=== PATIENT | female | born 1970 | race Caucasian/White ===

== ENCOUNTER 2022-06-09 03:02 | Emergency (ER) | payer OTHER, SELFPAY ==
--- NOTE | ~2022-06-09 | CT_ITS ---
EXAMINATION: CT abdomen pelvis w con DATE: 06/09/2022 04:14 INDICATION: Abdominal pain. Vomiting. TECHNIQUE: Computed tomography (CT) of the abdomen and pelvis was performed with 100 mL Omnipaque 350 intravenous contrast. Automated exposure control and iterative reconstruction technique were employe d. The dose-length product was 705.91 mGy-cm. COMPARISON: None. FINDINGS: The visualized portions of the lung bases demonstrate mild atelectasis. There is a 7 mm nod ule in left lower lobe. There is mild atelectasis in lingula and right middle lobe. No pleural effusi on. The heart size is normal. No pericardial effusion. There is diffuse hepatic steatosis. There are changes of cholecystectomy. The common duct is mildly dilated and measures 13 mm, likely not clinical ly significant given the normal liver function tests. Calcifications in the spleen are consistent wit h old granulomatous disease. The pancreas, adrenal glands, and kidneys are normal. There are some flu id-filled loops of small bowel with mild mesenteric edema, but the bowel loops are not dilated. There is mild mesenteric edema The appendix is normal. There is physiologic fluid in the pelvis. There is mild thoracolumbar spondylosis. IMPRESSION: 1. Mild mesenteric edema involving some small bowel loops, consistent with enteritis. 2. Diffuse hepatic steatosis. Reviewed, dictated and finalized at location A. IMPRESSION: 1. Mild mesenteric edema involving some small bowel loops, consistent with ente ritis. 2. Diffuse hepatic steatosis.
[2022-06-09 02:56] VITALS: BP 180/91; PULSE 67; RESP 16; TEMP 36.4; O2SAT 100
[2022-06-09] MEDS: MORPHINE SULFATE (*CRX) 4 MG/ML INJ IV PUSH (03:18)
[2022-06-09] MEDS: SODIUM CHLORIDE 0.9% IV 1,000 ML 999 ML IV CONT (03:19)
[2022-06-09] MEDS: ONDANSETRON INJ 4 MG/2 ML VIAL IV PUSH (03:19)
--- NOTE | 2022-06-09 03:37 | ED.GENADULT ---
HPI - General Adult General Chief complaint: Abdominal Pain Stated complaint: ABD PAIN, N/V Time Seen by Provider: 06/09/22 03:02 History of Present Illness HPI narrative: Patient 51-year-old female who presents the emergency department with chief complaint of abdominal pain. Patient reports this evening she started feeling not so well and then started having nausea. The patient states she vomited approximately 5 times and then started having abdominal pain patient states the pain was more of a sharp type sensation reports the pain is not worsened by anything nor is it improved by anything. Patient states she also started having loose bowel movements when this started as well. The patient reports she had COVID approximately 2 weeks ago reports that the symptoms or not improved by anything. Related Data Allergies Allergy/AdvReac Type Severity Reaction Status Date / Time ibuprofen Allergy Severe SOB, HIVES Verified 06/09/22 04:22 naloxegol [From Movantik] AdvReac Intermediate Opioid Verified 06/09/22 04:22 withdrawal Review of Systems Review of Systems: A 10 system review of systems was completed on the patient and is negative except for what is stated in the HPI. Nursing and ancillary documentation was reviewed. 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 HEAD: Normocephalic, atraumatic. EYES: PERRLA and EOMI. ENT: Nares clear, no rhinorrhea or epistaxis. Mucous membranes moist. NECK: Supple. CHEST: Clear to auscultation. No respiratory distress. HEART: Regular rate and rhythm. No murmur heard. Normal peripheral pulses. ABDOMEN: Soft, diffuse mild tenderness to palpation, nondistended, normal active bowel sounds. EXTREMITIES: Normal range of motion. No edema. SKIN: Warm, dry, no rash. NEURO: No focal deficits. Alert and oriented x3. PSYCH: Normal mood and affect. Course Vital Signs Vital signs: Vital Signs Temperature 36.4 C 06/09/22 02:56 Pulse Rate 67 06/09/22 02:56 Respiratory Rate 16 06/09/22 02:56 Blood Pressure 180/91 H 06/09/22 02:56 Pulse Oximetry 100 06/09/22 02:56 Oxygen Delivery Room Air 06/09/22 02:56 Temperature 36.4 C 06/09/22 02:56 Pulse Rate 59 L 06/09/22 05:02 Respiratory Rate 22 H 06/09/22 05:17 Blood Pressure 164/76 H 06/09/22 05:17 Pulse Oximetry 99 06/09/22 05:17 Oxygen Delivery Room Air 06/09/22 02:56 Medical Decision Making Vital Signs Vital Signs: Vital Signs Temperature 36.4 C 06/09/22 02:56 Pulse Rate 67 06/09/22 02:56 Respiratory Rate 16 06/09/22 02:56 Blood Pressure 180/91 H 06/09/22 02:56 Pulse Oximetry 100 06/09/22 02:56 Oxygen Delivery Room Air 06/09/22 02:56 Temperature 36.4 C 06/09/22 02:56 Pulse Rate 59 L 06/09/22 05:02 Respiratory Rate 22 H 06/09/22 05:17 Blood Pressure 164/76 H 06/09/22 05:17 Pulse Oximetry 99 06/09/22 05:17 Oxygen Delivery Room Air 06/09/22 02:56 Lab Data Result diagrams: 06/09/22 03:35 06/09/22 03:35 Labs: Lab Results
[2022-06-09 03:42] LABS: Basophils Percent Auto 0.3 % (0.2-1.2); Eosinophils Absolute Auto 0.1 K/mm3 (0-0.3); Eosinophils Percent Auto 0.8 % (0-4.4); Hematocrit 39.2 % (37.0-47.0); Hemoglobin 12.9 g/dL (12.0-15.0); Immature Granulocyte Absolute 0.04 K/mm3 (0.00-0.031); Immature Granulocyte Percent A 0.3 % (0-0.5); Lymphocytes Absolute Auto 1.89 K/mm3 (0.9-3.2); Lymphocytes Percent Auto 15.1 % (18.3-44.2); Mean Corpuscular HGB Conc 32.9 g/dl (32-36); Mean Corpuscular Hemoglobin 29.5 pg (26-34); Mean Corpuscular Volume 89.7 fl (80-100); Monocytes Absolute Auto 0.8 K/mm3 (0.1-0.6); Monocytes Percent Auto 6.5 % (2.6-8.5); Neutrophils Absolute Auto 9.7 K/mm3 (1.3-6.7); Platelet Count Result 276 k/mm3 (150-375); Red Blood Count 4.37 M/mm3 (4.2-5.4); Red Cell Distribution Width 13.2 % (11.5-14.5); White Blood Count 12.6 K/mm3 (4.5-10.0)
[2022-06-09 03:54] LABS: Lipase 99 U/L (23-300)
[2022-06-09 03:55] LABS: Lactic Acid Reflex 1.7 mmol/L (0.7-2.0)
[2022-06-09 03:56] LABS: Alanine Aminotransferase 29 U/L (6-35); Albumin Level 4.2 g/dL (3.5-5.1); Alkaline Phosphatase 68 U/L (38-126); Anion Gap 9 mmol/L (8-16); Aspartate Amino Transferase 36 U/L (14-36); Bilirubin,Total 0.4 mg/dL (0.2-1.3); Blood Urea Nitrogen 18 mg/dL (7-17); Carbon Dioxide 28 mmol/L (22-30); Chloride 98 mmol/L (98-107); Estimated CRCL calculation 63 ml/min; Estimated Glomerular Filt Rate > 60; Glucose 144 mg/dL (65-110); Potassium 4.2 mmol/L (3.4-5.0); Sodium 135 mmol/L (137-145)
--- NOTE | 2022-06-09 04:20 | PC.NURSE ---
Pt returns from CT. Explained need for NPO. States pain has improved somewhat. Amb to bathroom for ccus.
[2022-06-09 04:30] VITALS: BP 183/76; PULSE 62; RESP 20; O2SAT 95
[2022-06-09 04:32] VITALS: PULSE 60; RESP 18; O2SAT 99
--- NOTE | 2022-06-09 04:34 | PC.NURSE ---
Pt states abdominal pain has gone but still has extreme nausea and I just don't feel right .
[2022-06-09 04:37] LABS: Appearance Urine Clear (Clear); Bilirubin Urine Negative (Negative); Blood Urine 2+ (Negative); Color Urine Yellow (Yellow); Glucose Urine UA Negative (Negative); Ketones Urine Negative (Negative); Leukocyte Esterase Ur Trace LEU/UL (Negative); Nitrate Urine Negative (Negative); Protein Urine 1+ mg/dL (Negative); Specific Grav Ur 1.015 (1.001-1.035); Urobilinogen Urine 0.2 mg/dL (<2.0); pH Urine 7.5 (5.0-9.0)
[2022-06-09 04:46] LABS: Mucus Urine Rare /lpf; RBC Urine 21-50 /hpf (0-2); Squamous Epithelial Cell Urine Rare /hpf (Few)
[2022-06-09 04:47] VITALS: BP 168/97; PULSE 66; RESP 19; O2SAT 98
[2022-06-09 05:02] VITALS: BP 169/70; PULSE 59; RESP 17; O2SAT 99
[2022-06-09 05:09] LABS: Add Urine Microscopic? YES
[2022-06-09 05:17] VITALS: BP 164/76; RESP 22; O2SAT 99
--- NOTE | 2022-06-09 05:41 | PC.NURSE ---
Awaiting CT results. Pt resting on stretcher. Denies needs at present.
== END 2022-06-09 06:59 | disposition home or self-care (01) ==
PROVIDERS: Emergency Provider Emergency Medicine; PCP Family Medicine Adolescent Medicine
DX: K52.9 Noninfective gastroenteritis and colitis, unspecified (principal); K56.7 Ileus, unspecified; Z86.16 Personal history of COVID-19; Z90.710 Acquired absence of both cervix and uterus; Z90.722 Acquired absence of ovaries, bilateral; Z87.891 Personal history of nicotine dependence
CPT/HCPCS: 36415; 74177; 80053; 81001; 83605; 83690; 85025; 87086; 87088; 96361; 96374; 96375; 99284; J2270; J2405; J7030; Q9967

== ENCOUNTER 2023-03-02 | Observation (INO) | payer OTHER, SELFPAY ==
[2023-03-02] VITALS (16 sets, daily range): BP systolic 120–160; BP diastolic 79–94; PULSE 50–80; RESP 12–19; TEMP 36.5–36.7; O2SAT 97–100
--- NOTE | 2023-03-02 | ECHO_ITS ---
Patient Info Name: Twyla Green Age: 52 years : 1970 Gender: Female Ht: 65 in Wt: 165 lbs BSA: 1.87 m2 HR: 52 bpm BP: 124 / 89 mmHg Technical Quality: Fair Exam Date: 03/02/2023 2:01 PM Exam Location: [facility] Pulmonary Exam Room: 210 Patient Status: Inpatient Admit Date: 03/02/2023 Staff Ordering Physician: Alpesh Willis MD Power System Dispatcher: Ailyn Jarvis RDCS Attending Provider: Gabe Hoffmann MD Exam Type: CA echo doppler color flow Study Info Indications - CHEST PAIN Complete two-dimensional, color flow and Doppler transthoracic echocardiogram is performed. Summary 1. Complete two-dimensional, color flow and Doppler transthoracic echocardiogram is performed. 2. Left ventricular chamber dimension is normal. 3. Left ventricular systolic function is normal, estimated at 60-65%. 4. The left ventricular diastolic function is normal. 5. E/e' 8 is minimally elevated. 6. No pulmonary hypertension, estimated pulmonary arterial systolic pressure is 26 mmHg. Left Ventricle E/e' 8 is minimally elevated. Left ventricular chamber dimension is normal. Left ventricular systolic function is normal, estimated at 60-65%. The left ventricular diastolic function is normal. Right Ventricle Right ventricular chamber dimension is normal. Right ventricular systolic function is normal. Left Atria Left atrial chamber dimension is normal. Right Atria Right atrial chamber dimension is normal. Aortic Valve The aortic valve is trileaflet. There is no aortic valve stenosis. There is no aortic valve regurgitation. Pulmonic Valve There is no pulmonic regurgitation. Mitral Valve There is no mitral valve stenosis. There is no mitral valve regurgitation. Tricuspid Valve There is no tricuspid valve regurgitation. No pulmonary hypertension, estimated pulmonary arterial systolic pressure is 26 mmHg. Pericardium/Pleural There is no pericardial effusion. Inferior Vena Cava Normal inferior vena cava with >50% collapse upon inspiration consistent with normal right atrial pressure, 5 mmHg. Aorta The aortic root size at the sinus of Valsalva is normal. Left Ventricular Outflow Tract Name Value Normal LVOT 2D LVOT Diameter 2.0 cm LVOT Doppler LVOT Peak Gradient 4 mmHg LVOT Mean Gradient 2 mmHg LVOT VTI 19 cm LVOT VTI/AV VTI Ratio 1.0 LVOT Stroke Volume 59 ml LVOT CO 11.7 l/min LVOT CI 6.3 l/min/m2 Pulmonic Valve Name Value Normal RVOT Doppler RVOT Peak Gradient 2 mmHg PV Doppler PV Peak Gradient 3 mmHg Mitral Valve Name
--- NOTE | ~2023-03-02 | CT_ITS ---
Clinical Indication: Chest pain, dissection CT Scan of the Chest, Abdomen, and Pelvis with Contrast: Technique: Contiguous sections were acquired throughout the chest, abdomen, and pelvis after intraven ous administration of 100 cc of Omnipaque 350. Dose reduction technique was used on this scan by uti mirnaing automated exposure control and iterative reconstruction technique. The dose-length product (DL P) was 804.24 mGy-cm. COMPARISON: 06/09/2022 Findings: There is no evidence of any significant mediastinal, hilar or axillary lymphadenopathy. The mediastin al soft tissues appear normal. No aortic aneurysm or dissection. No pulmonary embolus. There is no evidence of pleural or pericardial effusion. Stable 7 mm noncalcified left lower lobe pulmonary nodule (axial image 78). No other pulmonary abnorm ality seen. Diffuse fatty infiltration of the liver is present. Cholecystectomy clips present. Calcified splenic granulomas are noted. The pancreas, adrenals and kidneys are within normal limits. No evidence of ao rtic aneurysm or dissection. No lymphadenopathy. No bowel obstruction or bowel wall thickening. There is no evidence to suggest acute appendicitis. Urinary bladder is unremarkable. No pelvic mass identified. No ascites. Impression: No aortic aneurysm or dissection. No acute abnormality seen. Diffuse fatty infiltration of the liver. Stable 7 mm left lower lobe pulmonary nodule. Continued follow-up to document 2 years of stability ad vised. Reviewed, dictated and finalized at [facility]. Impression: No aortic aneurysm or dissection. No acute abnormality seen. Diffuse fatty infiltration of the liver. Stable 7 mm left lower lobe pulmonary nodule. Continued follow-up to document 2 years of stability advised.
--- NOTE | ~2023-03-02 | XR_ITS ---
Clinical Indication: Chest pain PA and lateral views of the chest: Comparison: None Findings: The lungs are clear, without evidence of focal consolidation or pleural effusion. Cardiome diastinal silhouette is within normal limits. Bones and soft tissues are unremarkable. Impression: Normal chest. Reviewed, dictated and finalized at location . Impression: Normal chest.
--- NOTE | ~2023-03-02 | NM_ITS ---
EXAMINATION: NM marilee stress w perfusion DATE: 03/02/2023 13:00 INDICATION: Chest pain. TECHNIQUE: Rest images were obtained following intravenous administration of 10.5 mCi Tc99m tetrofosm in (Myoview). The patient was infused intravenously with Lexiscan (regadenoson). Then, 34.6 mCi Tc99m tetrofosmin (Myoview) was administered intravenously, and stress images were obtained. Data was mitesh nstructed into short axis and horizontal and vertical long axis SPECT images. Gated SPECT images were also obtained. COMPARISON: CT chest 03/02/2023 FINDINGS: There is no definite reversible or fixed perfusion abnormality to suggest ischemia or infar ction. There is no segmental wall motion abnormality. Left ventricular ejection fraction measures > 70%. IMPRESSION: 1. No definite ischemia or infarct. 2. Normal left ventricular ejection fraction measuring >70%. Reviewed, dictated and finalized at location A.
--- NOTE | 2023-03-02 00:02 | ECG_ITS ---
Measurements Intervals [place] Rate: 73 P: 67 MO: 235 QRS: 51 QRSD: 80 T: 54 QT: 373 QTc: 413 Interpretive Statements SINUS RHYTHM WITH FIRST DEGREE AV BLOCK INCOMPLETE RIGHT BUNDLE BRANCH BLOCK BASELINE ARTIFACT- I, II, III, AVR BORDERLINE ECG NO PREVIOUS ECG AVAILABLE FOR COMPARISON Electronically Signed On 03-02-2023 6:39:58 CDT by Doron Novoa D.O.
[2023-03-02 00:24] LABS: Basophils Absolute Auto 0.1 K/mm3 (0.0-0.1); Basophils Percent Auto 0.7 % (0.2-1.2); Eosinophils Absolute Auto 0.2 K/mm3 (0-0.3); Eosinophils Percent Auto 2.5 % (0-4.4); Hematocrit 39.3 % (37.0-47.0); Hemoglobin 13.1 g/dL (12.0-15.0); Immature Granulocyte Absolute 0.03 K/mm3 (0.00-0.031); Immature Granulocyte Percent A 0.3 % (0-0.5); Lymphocytes Absolute Auto 3.16 K/mm3 (0.9-3.2); Lymphocytes Percent Auto 35.4 % (18.3-44.2); Mean Corpuscular HGB Conc 33.3 g/dl (32-36); Mean Corpuscular Hemoglobin 30.2 pg (26-34); Mean Corpuscular Volume 90.6 fl (80-100); Monocytes Absolute Auto 0.9 K/mm3 (0.1-0.6); Monocytes Percent Auto 10.5 % (2.6-8.5); Neutrophils Absolute Auto 4.5 K/mm3 (1.3-6.7); Neutrophils Percent Auto 50.6 % (45.5-73.1); Platelet Count Result 263 k/mm3 (150-375); Red Blood Count 4.34 M/mm3 (4.2-5.4); White Blood Count 8.9 K/mm3 (4.5-10.0)
[2023-03-02 00:32] LABS: Alanine Aminotransferase 49 U/L (6-35); Albumin Level 4.2 g/dL (3.5-5.1); Alkaline Phosphatase 69 U/L (38-126); Anion Gap 5 mmol/L (8-16); Aspartate Amino Transferase 42 U/L (14-36); Bilirubin,Total 0.3 mg/dL (0.2-1.3); Blood Urea Nitrogen 17 mg/dL (7-17); Calcium 8.9 mg/dL (8.4-10.2); Carbon Dioxide 32 mmol/L (22-30); Chloride 100 mmol/L (98-107); Estimated CRCL calculation 59 ml/min; Estimated Glomerular Filt Rate 58; Glucose 105 mg/dL (65-110); Lipase 129 U/L (23-300); Potassium 3.7 mmol/L (3.4-5.0); Sodium 137 mmol/L (137-145)
[2023-03-02 00:44] LABS: Troponin I < 0.012 ng/mL (0.000-0.034)
[2023-03-02 01:37] LABS: INR 1.1; Partial Thromboplastin Time 27.8 SECONDS (22.3-36.8); Prothrombin Time 14.6 Seconds (11.1-14.7)
[2023-03-02] MEDS: ASPIRIN 81 MG CHEWABLE TABLET 324 MG PO (02:14)
[2023-03-02 02:33] LABS: NT Pro B Type Natriuretic Pept 59 pg/mL (19.9-100)
--- NOTE | 2023-03-02 02:34 | ED.CHESTPAIN ---
HPI - Chest Pain General Chief Complaint: Chest Pain Stated Complaint: chest pain 40 minutes ago Time Seen by Provider: 03/02/23 01:07 History of Present Illness HPI narrative: 52-year-old female with a history of an MS and asthma reports for evaluation of substernal and right-sided chest pain that occurred approximately 1 hour prior to arrival. Patient states she was laying in her bed trying to fall asleep when the chest pain started. States she got up and walked around to see if it would go away however did not. She describes the pain as tight and radiating into her back. She reports associated hot flashes when the pain occurred. States the pain has improved since she has been in the ED. She denies shortness of breath, fever, cough or congestion, lightheadedness, focal numbness or weakness, nausea or vomiting. Patient reports she had an MS in her 40s that was mild , and did not require a PCI. 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 Related Data Allergies Allergy/AdvReac Type Severity Reaction Status Date / Time ibuprofen Allergy Severe SOB, HIVES Verified 07/03/22 10:00 naloxegol [From Movantik] AdvReac Intermediate Opioid Verified 07/03/22 10:00 withdrawal Review of Systems Review of Systems: CONSTITUTIONAL: Denies fever, chills EYES: Denies visual changes, redness, or discharge. ENT: Denies rhinorrhea, congestion, sore throat, or otalgia. CARDIOVASCULAR: See HPI RESPIRATORY: Denies cough or dyspnea. GASTROINTESTINAL: Denies abdominal pain, nausea, vomiting, or diarrhea. GENITOURINARY: Denies dysuria or hematuria. SKIN: Denies rash or itching. MUSCULOSKELETAL: See HPI NEUROLOGIC: Denies headache, numbness, dizziness, or weakness. PSYCHIATRIC: Denies anxiety or depression. 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 Patient resting on exam bed. She is with her conversational. HEAD: Normocephalic EYES: PERRLA ENT: Nares clear. Mucous membranes moist. Oropharynx without tonsillar hypertrophy exudate or other lesions. NECK: Supple. CHEST: No respiratory distress. Clear to auscultation, no adventitious breath sounds. No tenderness to chest wall. HEART: Regular rate and rhythm. No murmur heard. Normal peripheral pulses. ABDOMEN: Soft, nontender, normal active bowel sounds. EXTREMITIES: Normal range of motion. No edema. SKIN: Warm, dry, no rash. NEURO: No focal deficits. Alert and oriented x3. PSYCH: Normal mood and affect. Course Vital Signs Vital signs: Vital Signs Temperature 97.7 F 03/02/23 00:20 Pulse Rate 80 03/02/23 00:20 Respiratory Rate 18 03/02/23 00:20 Pulse Oximetry 100 03/02/23 00:20 Oxygen Delivery Room Air 03/02/23 00:20 Temperature 97.7 F 03/02/23 00:20 Pulse Rate 66 03/02/23 01:42 Respiratory Rate 15 03/02/23 01:42 Blood Pressure 120/84 03/02/23 01:42 Pulse Oximetry 99 03/02/23 01:42 Oxygen Delivery Room Air 03/02/23 00:20 [facility] -
[2023-03-02 03:23] LABS: Troponin I < 0.012 ng/mL (0.000-0.034)
[2023-03-02 06:41] LABS: Troponin I < 0.012 ng/mL (0.000-0.034)
--- NOTE | 2023-03-02 09:17 | ADMGEN ---
This patient, Twyla Green, was admitted to Bed IMU-210. Patient/family oriented to hospital policies and general routines including ID bracelet, bed and alarms, visiting hours, pain management, procedures, bathroom and other care routines, personal items, smoking policy, room service/diet, and visiting hours. Information on how to activate the Rapid Response Team has been discussed. Patient/Family are encouraged to report perceived risks to care and to ask questions if they do not understand what they are told or what they should do.
--- NOTE | 2023-03-02 10:01 | EST_ITS ---
Patient Info Name: Twyla Green Age: 52 years : 1970 Gender: Female Ht: 65 in Wt: 165 lbs BSA: 1.87 m2 Exam Date: 03/02/2023 11:07 AM Exam Location: [facility] Stress Patient Status: Inpatient Admit Date: 03/02/2023 Staff Ordering Physician: Alpesh Willis MD Attending Provider: Gabe Hoffmann MD Exercise Technologist: Yasmin Woods RDCS Exercise Physician: Doron Novoa DO Exam Type: CA stress marilee w NM Study Info Indications R07.9 - Chest pain, unspecified A regadenoson stress test was performed. Summary 1. 1. Negative lexiscan stress test for ischemic ST changes by ECG criteria. 2. 2. Stable hemodynamics throughout the test. 3. 3. Nuclear scan to follow and will be reported separately. Please correlate with it. 4. 4. Patient informed of the above results. Protocol: Lexiscan Stress ECG Details Stage: REST Duration (min): 4 min : 1 sec HR (bpm): 54 SBP (mmHg): 117 DBP (mmHg): 70 Stage: REST Duration (min): 9 min : 51 sec HR (bpm): 56 SBP (mmHg): 117 DBP (mmHg): 70 Stage: STAGE 1 Duration (min): 1 min : 0 sec HR (bpm): 65 SBP (mmHg): 122 DBP (mmHg): 77 Stage: RECOVERY Duration (min): 1 min : 0 sec HR (bpm): 67 SBP (mmHg): 123 DBP (mmHg): 74 Stage: RECOVERY Duration (min): 2 min : 0 sec HR (bpm): 68 SBP (mmHg): 123 DBP (mmHg): 74 Stage: RECOVERY Duration (min): 3 min : 0 sec HR (bpm): 73 SBP (mmHg): 134 DBP (mmHg): 76 Stage: RECOVERY Duration (min): 3 min : 12 sec HR (bpm): 69 SBP (mmHg): 134 DBP (mmHg): 76 Rest HR: 56 bpm Peak HR: 73 bpm Rest Sys BP: 117 mmHg Peak Sys BP: 134 mmHg Max Pred HR: 168 bpm % Max Pred HR: 43 % Target HR: 143 bpm Max RPP: 9,782 bpm*mmHg Termination Reason: Completed protocol Cardiac Symptoms: Shortness of breath Total Time: 1 min : 0 sec Rest Bell BP: 70 mmHg Peak Bell BP: 76 mmHg Total Dose: 0.4 mg Resting ECG Sinus bradycardia, first degree AV block, IRBBB. Stress ECG No ST changes. Arrhythmias None. Report Signatures
[2023-03-02 14:07] LABS: Bacteria Urine 4+ /hpf; Bilirubin Urine Negative (Negative); Blood Urine 3+ (Negative); Color Urine Yellow (Yellow); Glucose Urine UA Negative (Negative); Ketones Urine Negative (Negative); Leukocyte Esterase Ur Negative LEU/UL (Negative); Nitrate Urine Positive (Negative); Non Pathogenic Casts 0-2; Protein Urine 1+ mg/dL (Negative); RBC Urine 21-50 /hpf (0-2); Squamous Epithelial Cell Urine None seen /hpf (Few); WBC Urine 0-5 /hpf; pH Urine 6.5 (5.0-9.0)
[2023-03-02 14:08] LABS: Add Urine Microscopic? YES; Appearance Urine Clear (Clear); Specific Grav Ur 1.045 (1.001-1.035)
--- NOTE | 2023-03-02 16:16 | PM.SD2 ---
Same Day Admit/Disch: HPI History of Present Illness Chief complaint: Chest Pain Narrative: Twyla Green is a 52 year old female HPI narrative: 52-year-old female with a history of an UT and asthma reports for evaluation of substernal and right-sided chest pain that occurred approximately 1 hour prior to arrival.? Patient states she was laying in her bed trying to fall asleep when the chest pain started.? States she got up and walked around to see if it would go away however did not.? She describes the pain as tight and radiating into her back.? She reports associated hot flashes when the pain occurred.? States the pain has improved since she has been in the ED.? She denies shortness of breath, fever, cough or congestion, lightheadedness, focal numbness or weakness, nausea or vomiting.? Patient reports she had an UT in her 40s that was mild , and did not require a PCI.? 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 52-year-old female presented to ER with complaint of chest patient's 3 sets of cardiac enzymes are negative and there are no acute changes on EKG to further evaluate patient was admitted in the hospital, currently patient denies any chest pain PMFSH Surgical History Surgical History History of cholecystectomy 2011 History of hysterectomy 2006 w/BSO Family History Family History Mother Heart disease Father Heart disease Social History Social History Years smoked: 25 Smoking status: Current every day smoker Tobacco type: e-cigarettes/vaping Second hand tobacco smoke exposure: Yes Smoking end date: 12/26/19 Additional smoking assessment comments: 5% - 5000 puffs lasts a week. 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 Gender identity (if verbalized by the patient): Female Sexual Orientation (if Verbalized by the Patient): Straight or Heterosexual Spiritual care concerns: No Agree to blood products: Yes Same Day Admit/Disch: Med Pre-admit Medications Home Medications Medication Instructions Recorded Confirmed Type ondansetron 4 mg disintegrating 4 mg PO Q8H PRN nausea and 06/09/22 03/02/23 Rx tablet vomiting #10 tabs fluticasone propionate 115 2 puff inhalation BID #12 grams 06/21/22 03/02/23 Rx mcg-salmeterol 21 mcg/actuation HFA inhaler hyoscyamine sulfate 0.125 mg 0.125 mg PO QID PRN abdominal pain 07/03/22 03/02/23 Rx sublingual tablet #20 tabs albuterol sulfate 90 mcg/actuation 2 inh inhalation Q4H PRN shortness 07/10/22 03/02/23 Rx aerosol inhaler (ProAir HFA) of breath or wheezing #8.5 grams triamcinolone acetonide 0.1 % 1 applic topical BID #453.6 grams 01/25/23 03/02/23 Rx topical cream baclofen 10 mg tablet 10 mg PO DAILY PRN Spasms 03/02/23 03/02/23 History diclofenac sodium 75 mg 75 mg PO BID PRN arthritis 03/02/23 03/02/23 History tablet,delayed release methadone 10 mg tablet 10 mg PO HS PRN Pain 03/02/23 03/02/23 History methadone 10 mg tablet 30 mg PO DAILY PRN pain 03/02/23 03/02/23 History Exam Narrative: Patient is comfortable, NAD HEENT: eyes are clear and none icteric LUNGS: Normal respiratory effort ABD: BS+, Soft and nontender Lower extremities: no edema SKIN: nonjaundiced Neuro: grossly intact. DS: Data Data Completed and
== END 2023-03-02 16:50 | disposition home or self-care (01) ==
LOC: ANHED 04:01 → ANHIMU 14:04
PROVIDERS: Emergency Medicine; Admitting Provider Family Medicine; Emergency Provider Physician Assistant; PCP Family Medicine Adolescent Medicine; Visit Provider Family Medicine
DX: R07.89 Other chest pain (principal); N95.1 Menopausal and female climacteric states; I25.2 Old myocardial infarction; J45.909 Unspecified asthma, uncomplicated; R91.1 Solitary pulmonary nodule; I45.10 Unspecified right bundle-branch block; N39.0 Urinary tract infection, site not specified; B96.20 Unspecified Escherichia coli [E. coli] as the cause of diseases classified elsewhere; K76.0 Fatty (change of) liver, not elsewhere classified; F19.90 Other psychoactive substance use, unspecified, uncomplicated; Z87.891 Personal history of nicotine dependence; Z79.51 Long term (current) use of inhaled steroids; Z79.52 Long term (current) use of systemic steroids; Z79.1 Long term (current) use of non-steroidal anti-inflammatories (NSAID); Z79.899 Other long term (current) drug therapy
CPT/HCPCS: 36415; 71046; 71275; 74174; 78452; 80053; 81001; 83690; 83880; 84484; 85025; 85610; 85730; 87077; 87086; 87186; 93005; 93017; 93306; 96374; 99285; A9270; A9502; G0378; G0379; J0696; J2785; Q9967

== ENCOUNTER 2023-10-09 10:50 | Emergency (ER) | payer OTHER, SELFPAY ==
--- NOTE | ~2023-10-09 | XR_ITS ---
XR hand LT min 3V 10/09/2023 11:56 Indication: Left hand swelling Procedure: 3 views left hand Comparison: No prior studies for comparison. Findings: No fracture, subluxation or dislocation. No focal soft tissue abnormality. No foreign natalie s. Impression: 1: No significant bone or joint abnormality. Reviewed, dictated and finalized at location L. [employer] Impression: 1: No significant bone or joint abnormality.
[2023-10-09 10:52] VITALS: BP 177/87; PULSE 69; RESP 16; TEMP 36.5; O2SAT 100
[2023-10-09 11:36] VITALS: BP 119/63; PULSE 68; RESP 17; O2SAT 99
--- NOTE | 2023-10-09 12:57 | ED.UPPEXIN ---
HPI - Extremity Injury (Upper) General Chief Complaint: Extremity Injury, Upper Stated Complaint: right hand pain Time Seen by Provider: 10/09/23 12:12 Source: patient and RN notes reviewed Mode of arrival: ambulatory Limitations: no limitations History of Present Illness HPI narrative: This is a 53 year old right hand dominant female who presents for evaluation of left hand and wrist pain. She reports she has been having pain to radial side thumb and wrist for 1 month. PAtient is constant and it is worse with movement. She has been taking tylenol for pain. She denies any injury. She has not sought medical treatment for this yet. Related Data Allergies Allergy/AdvReac Type Severity Reaction Status Date / Time ibuprofen Allergy Severe SOB, HIVES Verified 10/09/23 11:40 naloxegol [From Movantik] AdvReac Intermediate Opioid Verified 10/09/23 11:40 withdrawal Review of Systems Review of Systems: All systems reviewed & are unremarkable except as noted in HPI and below PMFSH Past Medical History Medical History (Updated 10/09/23 @ 13:09 by Brielle Nuñez MD) Mild persistent asthma, uncomplicated Surgical History Surgical History History of cholecystectomy 2011 History of hysterectomy 2006 w/BSO Family History Family History Mother Heart disease Father Heart disease Social History Social History Years smoked: 25 Smoking status: Current every day smoker Tobacco type: e-cigarettes/vaping Second hand tobacco smoke exposure: Yes Smoking end date: 12/26/19 Additional smoking assessment comments: 5% - 5000 puffs lasts a week. 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 Gender identity (if verbalized by the patient): Female Sexual Orientation (if Verbalized by the Patient): Straight or Heterosexual Spiritual care concerns: No Agree to blood products: Yes Exam Const: General: no acute distress and alert Nutritional Appearance: well nourished Orientation/consciousness: patient oriented x3 HENMT: Head: normal to inspection Ears: external ears normal Mouth: Yes Normal oral and palatal mucosa present, Yes lip normal and Yes moist mucous membranes Eyes: EOM: EOMs intact bilaterally Chest: Chest palpation & inspection: normal inspection of the chest Resp: Effort & Inspection: normal respiratory effort Cardio: Rate: regular rate Skin: General skin exam: normal color Rashes: no rashes Wounds: no wounds Neuro: General: patient oriented x3, moves all extremities and CN's II-XI intact bilaterally Extrem: Other: left radial wrist with mild tenderness, no swelling, no erythema. She is able to range at wrist and all fingers. sensation intact Psych: Mental Status: mental status grossly normal Affect: normal affect Attitude: cooperative Course Reevaluation(s) Reevaluation #1: I discussed with patient that she may have tendonitis. She will get wrist brace and continue ice therapy. She will follow up with PCP or hand. Date: 10/09/23 Time: 13:05 Vital Signs Vital signs: Vital Signs Temperature 97.7 F 10/09/23 10:52 Pulse Rate 69 10/09/23 10:52 Respiratory Rate 16 10/09/23 10:52 Blood Pressure 177/87 H 10/09/23 10:52 Pulse Oximetry 100 10/09/23 10:52 Oxygen Delivery Room Air 10/09/23 10:52 Temper
== END 2023-10-09 13:31 | disposition home or self-care (01) ==
PROVIDERS: Emergency Provider General Practice; PCP Family Medicine Adolescent Medicine
DX: M25.531 Pain in right wrist (principal); J45.30 Mild persistent asthma, uncomplicated; F17.290 Nicotine dependence, other tobacco product, uncomplicated; Z79.51 Long term (current) use of inhaled steroids; Z79.891 Long term (current) use of opiate analgesic
CPT/HCPCS: 73130; 99283

== ENCOUNTER → 2025-05-13 11:28 | Outpatient (CLI) | payer BC, SELFPAY ==
--- NOTE | ~2025-05-13 | XR_ITS ---
HISTORY: M79.642 - Pain in left hand COMPARISON: 10/09/2023 TECHNIQUE: 3 views of the left hand were performed. FINDINGS: No acute fracture is identified. 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 The remaining joint spaces are otherwise preserved. The carpal arcs are intact. Mild radiocarpal joint space narrowing with sclerosis of the distal radius is present. Trace negative ulnar variance is detected. Periarticular osteopenia is identified, consistent with osteoarthritis. No significant soft tissue swelling. No radiopaque foreign body is identified. IMPRESSION: Degenerative disease, without acute fracture. Reviewed, dictated and finalized at location A.
== END ==
PROVIDERS: PCP Family Medicine; Visit Provider Family Medicine
DX: M19.042 Primary osteoarthritis, left hand (principal)
CPT/HCPCS: 73130